=== PATIENT | male | born 1935 | race Caucasian/White ===

== ENCOUNTER → 2017-05-12 | Outpatient (CLI) | payer MEDICARE, OTHER ==
[~2017-05-12] MED LIST: ALBU90OI6 INH; AMLO10 PO; ASPI500 PO; ATOR40TA PO; BETA1 PO; CHLO25B PO; CIPR500 PO; FLUT.05NI; HYDACE5 PO; INDO75CR PO; LEVSOD137 PO; LISI5 PO; PROP60 PO; ROSU10TA PO; UBID100 PO
== END ==
LOC: LAB SHORT 16:47 → LAB EV 16:47
DX: N39.0 Urinary tract infection, site not specified (principal)
CPT/HCPCS: 87077; 87086; 87186

== ENCOUNTER → 2017-07-07 | Outpatient (CLI) | payer MEDICARE, OTHER | LOC: LAB 16:33 → LAB SHORT 16:33 | DX: N39.0 Urinary tract infection, site not specified (principal) | CPT/HCPCS: 87077; 87086; 87186 ==

== ENCOUNTER → 2017-07-15 | Outpatient (CLI) | payer MEDICARE, OTHER ==
[2017-07-15 10:14] LABS: Microalbumin, Urine Quant. 86.2 mg/L (0.000-20.000)
== END ==
LOC: LAB SHORT 07:55 → OLS 07:55
PROVIDERS: Internal Medicine Nephrology
DX: N18.3 Chronic kidney disease, stage 3 (moderate) (principal); D75.1 Secondary polycythemia; N25.81 Secondary hyperparathyroidism of renal origin; E55.9 Vitamin D deficiency, unspecified; E78.00 Pure hypercholesterolemia, unspecified; R76.9 Abnormal immunological finding in serum, unspecified; R94.5 Abnormal results of liver function studies; R94.6 Abnormal results of thyroid function studies; D51.8 Other vitamin B12 deficiency anemias; D52.8 Other folate deficiency anemias; D50.9 Iron deficiency anemia, unspecified
CPT/HCPCS: 81050; 82043; 84156

== ENCOUNTER 2018-02-07 17:54 | Emergency (ER) | payer MEDICARE, OTHER ==
[~2018-02-07] VITALS: Ht 190.5 cm; Wt 86.2 kg
[~2018-02-07 17:54] MED LIST changes: +ASPI325 PO; -BETA1 PO; +CLIN300; +CLOP75 PO; +HYDR1TAB94 PO; +LEVSOD100 PO; +Ocuvite Softge1 EAC1; +SULF500A
[2018-02-07 18:38] LABS: Source, Urine Urostomy Bag
[2018-02-07 18:42] LABS: Appearance, Urine Cloudy (Clear); Bilirubin, Urine Neg (Neg); Blood, Urine 5+ (Neg); Color, Urine Yellow (P-Yellow); Glucose Qualitative, Urine Neg (Neg); Ketones, Urine Neg (Neg); Leukocyte Esterase, Urine 3+ (Neg); Nitrite, Urine Neg (Neg); Protein, Urine 3+ (Neg); Urobilinogen, Urine NORM (Normal)
[2018-02-07 18:49] LABS: Red Blood Cells, Urine 50-100 /hpf (0-2); White Blood Cells, Urine TNTC /hpf (0-5)
[2018-02-07 18:51] LABS: Bacteria Many /hpf; Squamous Epithelial Cells Few /hpf (Few)
[2018-02-07] MEDS ORDERED: ONDA4ODT MM (19:16)
[2018-02-07] MEDS ORDERED: CEPH500 PO (19:16)
== END 2018-02-07 19:25 | disposition home or self-care (01) ==
LOC: ER 17:54
PROVIDERS: Emergency Medicine
DX: N39.0 Urinary tract infection, site not specified (principal); Z79.899 Other long term (current) drug therapy; Z79.82 Long term (current) use of aspirin; I25.2 Old myocardial infarction; Z85.51 Personal history of malignant neoplasm of bladder
CPT/HCPCS: 81001; 87077; 87086; 87186; 99283